=== PATIENT | female | born 1990 ===

== ENCOUNTER 2017-07-19 22:13 | Emergency (ER) | payer SELFPAY ==
[2017-07-19 22:13] VITALS: BMI 28.8
[2017-07-19 22:21] VITALS: BP 144/94; PULSE 92; RESP 18; TEMP 98; O2SAT 100
[2017-07-20] MEDS ORDERED: Alum-Mag Hydrox-Simethicone Susp (30 mL) PO STA (00:05)
--- NOTE | 2017-07-20 00:29 | ED PDOC ---
HPI: Chest Pain Time Seen by Provider: 07/19/17 23:57 Chief Complaint (Nursing): Chest Pain Chief Complaint (Provider): chest pain History Per: Patient History/Exam Limitations: no limitations Onset/Duration Of Symptoms: Mins (x10) Current Symptoms Are (Timing): Better Additional Complaint(s): Susan Aguayo is a 26 year old female with previous medical history of anemia , who presents to the emergency department with a complaint of epigastric pain radiating to chest and back ongoing for 10 minutes prior to arrival. Denied any shortness of breath, fever or chills. Patient also reported increasing skin paleness and unintentional weight loss recently, mostly likely consistent with anemia, and that symptoms are improving since arrival to ED. PMD: none provided Past Medical History Reviewed: Historical Data, Nursing Documentation, Vital Signs Vital Signs: Last Vital Signs Temp 98 F 07/19/17 22:20 Pulse 92 H 07/19/17 22:20 Resp 18 07/19/17 22:20 BP 144/94 H 07/19/17 22:20 Pulse Ox 100 07/20/17 00:39 - Medical History PMH: Anemia - Family History Family History: States: Unknown Family Hx - Immunization History Hx Tetanus Toxoid Vaccination: No Hx Influenza Vaccination: Yes Hx Pneumococcal Vaccination: No - Home Medications Home Medications: Ambulatory Orders Medication Instructions Recorded Omeprazole 40 mg PO DAILY 12/28/16 Famotidine [Pepcid] 20 mg PO BID #20 tab 07/20/17 - Allergies Allergies/Adverse Reactions: Allergies Allergy/AdvReac Type Severity Reaction Status Date / Time No Known Allergies Allergy Verified 12/28/16 10:15 Review of Systems ROS Statement: Except As Marked, All Systems Reviewed And Found Negative Constitutional: Positive for: Weight loss Cardiovascular: Positive for: Chest Pain Gastrointestinal: Positive for: Abdominal Pain (epigastric) Musculoskeletal: Positive for: Back Pain Skin: Positive for: Other (pale) Physical Exam - Reviewed Nursing Documentation Reviewed: Yes Vital Signs Reviewed: Yes - Physical Exam Appears: Positive for: No Acute Distress Head Exam: Positive for: ATRAUMATIC, NORMAL INSPECTION, NORMOCEPHALIC Skin: Positive for: Pallor. Negative for: Normal Color Eye Exam: Positive for: Normal appearance, EOMI, PERRL. Negative for: Nystagmus ENT: Positive for: Normal ENT Inspection Neck: Positive for: Normal Cardiovascular/Chest: Positive for: Regular Rate, Rhythm. Negative for: Chest Non Tender, Murmur Respiratory: Positive for: Normal Breath Sounds, Accessory Muscle Use. Negative for: Decreased Breath Sounds, Respiratory Distress Gastrointestinal/Abdominal: Positive for: Soft, Tenderness (mild epigastric). Negative for: Normal Exam, Mass Back: Positive for: Normal Inspection. Negative for: L CVA Tenderness, R CVA Tenderness Extremity: Positive for: Normal ROM. Negative for: Tenderness, Pedal Edema, Deformity Neurologic/Psych: Positive for: Alert, Oriented - Laboratory Results Result Diagrams: 07/20/17 00:45 07/20/17 00:45 - ECG O2 Sat by Pulse Oximetry: 100 (RA) Pulse Ox Interpretation: Normal Medical Decision Making Medical Decision Making: Initial Impression: Gastritis; possible anemia Initial Plan: BMP * Lipase * CBC * Lidocaine 2% viscous 15ml PO * Maalox plus 30ml PO * Pepcid 20mg PO * Tylenol 650mg PO 115AM: Pt feeling much better, will d/c home. Return precautions given. Scribe Attestation: Documented by Vivien Valverde, acting as a scribe for Rip Castellanos MD. Provider Scribe Attestation: All medical record entries made by the Scribe were at my direction and personally dictated by me. I have reviewed the chart and agree that the record accurately reflects my personal performance of the history, physical exam, medical decision making, and the department course for this patient. I have also personally directed, reviewed, and agree with the discharge instructions and disposition. Disposition - Clinical Impression Clinical Impression: Gastritis - Disposition Referrals: [facility] [Outside] Disposition: Routine/Home Disposition Time: 01:27 Condition: STABLE Prescriptions: Famotidine [Pepcid] 20 mg PO BID #20 tab Instructions: Gastritis (GEN) Forms: 10-20 Media (Chinese) Print Language: [place]
[2017-07-20] MEDS ORDERED: Alum-Mag Hydrox-Simethicone Susp (30 mL) ONE (00:41)
[2017-07-20 01:04] LABS: BASO % 0.5 % (0.0-2.0); EOS # 0.4 K/uL (0.0-0.7); EOS % 5.1 % (0.0-4.0); HEMATOCRIT 35.8 % (34.0-47.0); LYMPH # 2.9 K/uL (1.0-4.3); LYMPH % 36.8 % (20.0-40.0); MEAN CELL VOLUME 84.3 fl (81.0-99.0); MEAN CORPUSCULAR HGB CONC 33.2 g/dL (33.0-37.0); MEAN PLATELET VOLUME 8.8 fl (7.2-11.7); MONO # 0.6 K/uL (0.0-0.8); MONO % 8.1 % (0.0-10.0); NEUT # 3.9 K/uL (1.8-7.0); NEUT % 49.5 % (50.0-75.0); NRBC % 0.1 % (0.0-0.0); RED CELL DISTRIBUTION WIDTH 13.8 % (11.5-14.5); WHITE BLOOD COUNT 7.9 K/uL (4.8-10.8)
[2017-07-20 01:10] LABS: BLOOD UREA NITROGEN 9 mg/dl (7-17); CALCIUM 9.7 mg/dL (8.4-10.2); CARBON DIOXIDE 24 mmol/L (22-30); CHLORIDE 106 mmol/L (98-107); GFR AFRICAN-AMERICAN > 60; GLUCOSE,RANDOM 95 mg/dL (65-105); LIPASE 97 U/L (23-300); POTASSIUM 3.7 MMOL/L (3.6-5.0); SODIUM 142 mmol/l (132-148)
== END 2017-07-20 01:28 | disposition home or self-care (01) ==
LOC: H.ER 22:13
DX: K29.70 Gastritis, unspecified, without bleeding (principal)